=== PATIENT | female | born 1965 | race American Indian/Alaskan Native ===

== ENCOUNTER 2017-10-21 08:05 | Day surgery (SDC) | payer MEDICAID ==
[~2017-10-21 08:05] MED LIST: WATER FOR IRRIG STERILE IR ONE
[2017-10-21] MEDS ORDERED: NACL 0.9% 1000 ML 1,000 ML IV SCH (09:00)
[2017-10-21] MEDS ORDERED: HURRICAINE ONE 20% TOPICAL SPRAY MM ×2 (10:24→16:13)
[2017-10-21] MEDS ORDERED: DIPRIVAN 10 MG/ML IV ONE ×2 (10:27)
--- NOTE | 2017-10-21 10:31 | Anesthesia Consultation ---
Anesthesia Consult and Med Hx Date of service: 10/21/17 - Airway Anesthetic Teeth Evaluation: Good ROM Head & Neck: Adequate Mental/Hyoid Distance: Adequate Mallampati Class: Class III Intubation Access Assessment: Possibly Difficult - Pulmonary Exam CTA: Yes - Cardiac Exam Cardiac Exam: RRR - Pre-Operative Health Status ASA Pre-Surgery Classification: ASA3 Proposed Anesthetic Plan: MAC - Pulmonary Hx Sleep Apnea: Yes - Cardiovascular System Hx Hypertension: Yes - Endocrine Hx Non-Insulin Dependent Diabetes: Yes - Hematic Hx Sickle Cell Disease: Yes (TRAIT) - Other Systems Hx Cancer: Yes (left breas, s/p masectomy ) Hx Obesity: Yes
--- NOTE | 2017-10-21 10:32 | Anesthesia Day of Surgery ---
Anesthesia Day of Surgery - Day of Surgery Patient Examined: Yes Patient H&P Reviewed: Yes Patient is NPO: Yes
--- NOTE | 2017-10-21 10:42 | Operative Report ---
Operative Report Operative Report: OPERATIVE REPORT - EGD DATE 10/21/17 SURGERY: Upper endoscopy. SURGEON: Dr. Garcia DRESSMAKER OR TAILOR: Beto Beckett DO PRE OP DX: dyspepsia POST OP DX: gastritis , small hiatal hernia TYPE OF ANESTHESIA: MAC. ESTIMATED BLOOD LOSS: None. COMPLICATIONS: None. SPECIMENS REMOVED: antral biopsy, body of stomach biopsy FINDINGS: 1. Small hiatal hernia. 2. gastritis INDICATIONS:INDICATION FOR PROCEDURE: Patient is a 52-year-old female with a long history of morbid obesity. She is planned to have a weight loss procedure and is here for preoperative planning EGD. PROCEDURE DETAILS: After consent was reviewed, patient was taken back to the operating room where patient was placed in the left lateral decubitus position and a bite block was placed in the mouth. After a time-out was called, MAC anesthesia was initiated. I then passed the endoscope into her oropharynx, into her esophagus, visualized the entire esophagus, which was all within normal limits. I then visualized the stomach and the first portion of the duodenum. The stomach was noted to have gastritis. An antral biopsy and body of stomach biopsy were performed. Next the scope was I then retroflexed in the stomach and visualized the hiatus and I could see a small hiatal hernia. I then desufflated the stomach and removed the endoscope. Patient tolerated procedure well and was transferred to recovery room in good and stable condition.
--- NOTE | 2017-10-21 10:57 | Discharge Summary ---
Providers - Providers Attending physician: JUAN MIGUEL GARCIA Primary care physician: DEIDRA BULLOCK Hospitalization Procedures: egd with biopsy Hospital course: 52 y.o. F presented for an EGD for upcoming surgery. She tolerated the procedure well. She was noted to have gastritis and was prescribed omeprazole. 20mg daily Disposition: - TO HOME OR SELFCARE Core Measure Documentation - Palliative Care Palliative Care/ Comfort Measures: Not Applicable - Core Measures Any of the following diagnoses?: none Exam - Physical Exam Narrative exam: no change from prior - Constitutional Vitals: Temp Pulse Resp BP Pulse Ox 98.3 F 90 13 122/82 94 10/21/17 08:57 10/21/17 08:57 10/21/17 08:57 10/21/17 08:57 10/21/17 08:57 Plan Additional Instructions: follow up with Dr. Garcia. A prescription for omeprazole will be called into your pharmacy. Follow up with: DEIDRA BULLOCK MD [Primary Care Provider] - 7 Days
[2017-10-21 11:27] VITALS: BP 125/73
[2017-10-21] MEDS ORDERED: WATER FOR IRRIG STERILE IR ONE (13:11)
--- NOTE | 2017-10-21 14:13 | Post Anesthesia Evaluation ---
- Post Anesthesia Evaluation Patient Participated: Yes Airway Patent: Yes Stable Respiratory Function: Yes Nausea/Vomiting: No Temp > 96.8F: Yes Pain Manageable: Yes Adequeate Hydration: Yes Anesthesia Complications: No
== END 2017-10-21 08:06 | disposition home or self-care (01) ==
LOC: GIO 08:05
PROVIDERS: ATTEND Specialist
DX: K29.50 Unspecified chronic gastritis without bleeding (principal); B96.81 Helicobacter pylori [H. pylori] as the cause of diseases classified elsewhere; K44.9 Diaphragmatic hernia without obstruction or gangrene; K21.9 Gastro-esophageal reflux disease without esophagitis; G47.33 Obstructive sleep apnea (adult) (pediatric); I10 Essential (primary) hypertension; E78.00 Pure hypercholesterolemia, unspecified; E11.9 Type 2 diabetes mellitus without complications; F41.9 Anxiety disorder, unspecified; F32.9 Major depressive disorder, single episode, unspecified; E66.01 Morbid (severe) obesity due to excess calories; Z68.42 Body mass index [BMI] 45.0-49.9, adult; Z99.89 Dependence on other enabling machines and devices; Z85.3 Personal history of malignant neoplasm of breast; Z90.710 Acquired absence of both cervix and uterus; Z98.51 Tubal ligation status; Z90.13 Acquired absence of bilateral breasts and nipples; Z79.82 Long term (current) use of aspirin; Z79.84 Long term (current) use of oral hypoglycemic drugs; Z79.899 Other long term (current) drug therapy; Z88.1 Allergy status to other antibiotic agents; Z88.8 Allergy status to other drugs, medicaments and biological substances
CPT/HCPCS: 43239; 82962; 88305; 88342; J2704

== ENCOUNTER 2017-11-04 07:04 | Inpatient (IN) | payer MEDICAID ==
[~2017-11-04 07:04] MED LIST changes: +ANCEF/STERILE WATER 2 GM/20 ML 2 GM/20 ML SYRINGE IV NR; +APRESOLINE IV PRN; +FLAGYL 500 MG/100 ML 500 MG/100 ML BAG IV NR; +MORPHINE IV PRN; +MYLICON PO PRN; +NORMOSOL-R PH 7.4 1,000 ML IV SCH; +REGLAN IV PRN; -WATER FOR IRRIG STERILE IR ONE; +ZOFRAN IV PRN
[2017-11-04] MEDS ORDERED: TRANSDERM-SCOP TD SCH (08:00)
[2017-11-04] MEDS ORDERED: PEPCID IV SCH (08:13)
[2017-11-04] MEDS ORDERED: TRANSDERM-SCOP TD NR (08:14)
[2017-11-04] MEDS ORDERED: VERSED IV ONE (09:23)
[2017-11-04] MEDS ORDERED: LOVENOX SUB-Q NR (09:30)
[2017-11-04] MEDS: NACL 0.9% 1000 ML 1,000 ML IV SCH ×2 (09:35→16:58)
--- NOTE | 2017-11-04 09:38 | Anesthesia Consultation ---
Anesthesia Consult and Med Hx - Airway Anesthetic Teeth Evaluation: Good ROM Head & Neck: Adequate Mental/Hyoid Distance: Adequate Mallampati Class: Class II Intubation Access Assessment: Good - Pulmonary Exam CTA: Yes - Cardiac Exam Cardiac Exam: RRR - Pre-Operative Health Status ASA Pre-Surgery Classification: ASA3 Proposed Anesthetic Plan: General - Pulmonary Hx Sleep Apnea: Yes - Cardiovascular System Hx Hypertension: Yes (2010) - Central Nervous System Hx Psychiatric Problems: Yes - Endocrine Hx Non-Insulin Dependent Diabetes: Yes - Hematic Hx Sickle Cell Disease: Yes (TRAIT) - Other Systems Hx Cancer: Yes Hx Obesity: Yes
--- NOTE | 2017-11-04 09:40 | Anesthesia Day of Surgery ---
Anesthesia Day of Surgery - Day of Surgery Patient Examined: Yes Patient H&P Reviewed: Yes Patient is NPO: Yes
[2017-11-04] MEDS ORDERED: ZOFRAN IV PRN (09:41)
[2017-11-04] MEDS ORDERED: DILAUDID IV PRN (09:41)
[2017-11-04] MEDS ORDERED: MARCAINE-EPI 0.5%-1:200,000 INFILTRATI ONE ×2 (10:05→10:19)
[2017-11-04] MEDS ORDERED: XYLOCAINE 1% 20 mL ONE (10:05)
[2017-11-04] MEDS ORDERED: XYLOCAINE MPF 2% ONE (10:06)
[2017-11-04] MEDS ORDERED: ZEMURON IV ONE (10:06)
[2017-11-04] MEDS ORDERED: QUELICIN ONE (10:07)
[2017-11-04] MEDS ORDERED: DIPRIVAN 10 MG/ML IV ONE (10:07)
[2017-11-04] MEDS ORDERED: XYLOCAINE 1% 20 mL INFILTRATI ONE (10:19)
[2017-11-04] MEDS ORDERED: NACL 0.9% IR ONE ×2 (10:19→11:25)
[2017-11-04] MEDS ORDERED: SUBLIMAZE ONE (10:32)
[2017-11-04] MEDS ORDERED: WATER FOR IRRIG STERILE IR ONE (12:23)
[2017-11-04] MEDS ORDERED: NEOSTIGMINE ONE (14:09)
[2017-11-04] MEDS ORDERED: ROBINUL ONE ×2 (14:09→14:18)
[2017-11-04] MEDS ORDERED: DILAUDID ONE (14:09)
[2017-11-04] MEDS ORDERED: NEO SYNEPHRINE/NS Syringe(OR USE) IV ONE (14:10)
[2017-11-04] MEDS ORDERED: HumuLIN R IV ONE (15:00)
--- NOTE | 2017-11-04 16:33 | Operative Report ---
Operative Report Operative Report: Operative Report DATE OF PROCEDURE: 11/04/17 SURGEON: Dr. Garcia FEED PREPARATION OPERATOR: Adilson Talbert DO PREOPERATIVE DIAGNOSIS: Morbid obesity. POSTOPERATIVE DIAGNOSES: Morbid obesity PROCEDURES PERFORMED: 1. Laparoscopic gastric bypass. 2. Repair of hiatal hernia 3 EGD. 4 Liver biopsy 5. extensive lysis of adhesions ANESTHESIA: General endotracheal tube intubation. SPECIMENS: None. ESTIMATED BLOOD LOSS: Less than 10 mL. FINDINGS: Liver nodule 2. Adhesions 3. hiatal hernia COMPLICATIONS: None. INDICATION: Ms. Lee is a 52-year-old female with history of morbid obesity. She signed informed consent and expressed understanding of risks and benefits for a laparoscopic gastric bypass. DESCRIPTION OF PROCEDURE: Patient was brought to the OR suite, laid in supine position. Bilateral lower extremity SCDs were placed. General anesthesia was induced via successful endotracheal tube intubation. Patient's abdomen was prepped and draped in sterile fashion. Veress needle was inserted with ease into left upper quadrant. Insufflation to 12-15 was completed. Next using Optiview technique, a 12-mm trocar was placed into the abdominal cavity under direct vision. There was noted to be no gross injury to any intraabdominal structures. The veress needle was removed. 5 working trocars were placed under direct visualization, 15 mm in the right mid abdomen mid clavicular line and three 5-mm trocars in the right upper quadrant, epigastric, left upper quadrant and left mid abdomen. Extensive lysis of adhesions were performed as the omentum was adhered to the peritoneum. At this time, the ligament of Treitz identified and followed down approximately 30 cm and the jejunum was transected. The distal segment of jejunum was then traced for approximately 75 cm and a stable [id number] jejunojejunostomy was performed. The common enterotomy was closed with 2 firings of the endoscopic stapler. The mesenteric defect was closed with running Surgidac suture. This anastomosis was found to be patent without kink, obstruction or bleeding. At this time, the patient was placed in steep reverse Trendelenburg position. A liver retractor was placed through the epigastric port to elevate the left lateral lobe of the liver. The right and left crura were skeletonized accentuating a small hiatal hernia. An anterior cruraplasty was performed with a figure-of-8 stitch using surgidac suture to reapproximate the crura. Next a small gastric pouch was formed useing blunt dissection and a blue staple load x 2. The Elizabeth limb was then brought in an antegastric antecolic fashion and secured with 2 stay sutures to the gastric pouch. After this, the enterotomies were made with the hook cautery, and a [id number] stapled gastrojejunostomy was performed with a mechanical stapler. After this, a 2-layer running closure using Polysorb suture were done, the first being mucosal approximation prior to completion of the first layer. Next an EGD scope beyond the anastomosis to act as a stent. The first layer was completed, the second was then performed. After this, the EGD was retracted slightly. A bowel clamp was placed in a proximal Elizabeth limb. The anastomosis was submerged under saline. Via intraluminal EGD insufflation, there was noted be no bubbles in the saline indicating an airtight anastomosis. There was noted to be no obstruction or bleeding intraluminally in the pouch or the anastomosis. At this time, the scope was removed. The saline was aspirated. There was a hard white nodule on the right lobe of the liver. This nodule was removed with sharp dissection and hemostasis was obtained by hook cautery and pressure. Surgicele was placed over the wound on the liver. A small laceration of the liver was noted and the hook cautery obtained hemostasis along with the use fo the surgicele. The 15mm trocar was removed from the umbilius. The defect was closed using a suture passer with 1-pds. Next the remaining trocars were removed under direct visualization and the abdomen was then desufflated. The skin incisions were closed with 4-0 Monocryl followed by sterstrips, gauze and tegaderms. Patient was awoken and taken to recovery in stable condition. All counts were correct.
[2017-11-04] MEDS: HumaLOG SUB-Q SCH (18:53)
[2017-11-04] MEDS: DILAUDID IV PRN (22:30)
[2017-11-05] MEDS: HumaLOG SUB-Q SCH ×5 (00:05→23:29)
[2017-11-05] MEDS: NEURONTIN PO SCH ×4 (00:05→21:26)
[2017-11-05] MEDS: DILAUDID IV PRN (06:01)
[2017-11-05 06:06] LABS: Basophils % (Auto) 0.3 % (0.0-1.8); Eosinophils % (Auto) 0.1 % (0.0-4.3); Hematocrit 32.9 % (30.3-42.9); Hemoglobin 11.1 gm/dl (10.1-14.3); Lymphocytes # (Auto) 1.1 K/mm3 (1.2-5.4); Lymphocytes % (Auto) 12.9 % (13.4-35.0); Mean Corpuscular HGB Conc 34 % (30-34); Mean Corpuscular Hemoglobin 26 pg (28-32); Mean Corpuscular Volume 78 fl (79-97); Monocytes # (Auto) 0.9 K/mm3 (0.0-0.8); Monocytes % (Auto) 11.2 % (0.0-7.3); Platelet Count 220 K/mm3 (140-440); Red Blood Count 4.23 M/mm3 (3.65-5.03); Red Cell Distribution Width 14.3 % (13.2-15.2)
[2017-11-05 06:26] LABS: BUN/Creatinine Ratio 11; Blood Urea Nitrogen 8 mg/dL (7-17); Calcium 7.9 mg/dL (8.4-10.2); Hemolysis Index 0
[2017-11-05] MEDS: NACL 0.9% 1000 ML 1,000 ML IV SCH ×2 (07:22→19:39)
[2017-11-05] MEDS: NORVASC PO SCH (12:00)
[2017-11-05] MEDS: LOVENOX SUB-Q SCH (12:00)
[2017-11-05] MEDS: NORCO PO PRN ×2 (12:58→19:48)
--- NOTE | 2017-11-05 19:31 | Progress Note ---
Assessment and Plan 52 y.o. F s/p laparoscopic gastric bypass, hiatal hernia repair, extensive lysis of adhesions and liver biopsy pod 1 Pt vomited this am. She tolerated liquids this afternoon but with nausea. She continues to have epigastric pain. Will monitor overnight and reassess in am. continue pain and nausea control encourage ambulation Continue home meds for co-morbidities. GI and DVT proph Subjective Narrative: One episode of vomiting this am. Able to drink liquids this afternoon with feeling of nausea but no vomiting. +ambulation. Denies fever or chills. epigastric pain. Soreness in abd. when drinking . Objective Vital Signs - 12hr 11/05/17 11/05/17 11/05/17 08:00 08:48 10:00 Temperature 98.5 F Pulse Rate 77 82 Respiratory 18 Rate Blood Pressure Blood Pressure 151/80 [Left] O2 Sat by Pulse 98 94 Oximetry 11/05/17 11/05/17 11/05/17 12:00 12:15 12:16 Temperature 99.1 F Pulse Rate 79 71 Respiratory 18 Rate Blood Pressure Blood Pressure 153/80 [Left] O2 Sat by Pulse 98 98 Oximetry 11/05/17 11/05/17 15:42 15:43 Temperature 98.6 F Pulse Rate 87 87 Respiratory 20 Rate Blood Pressure 132/78 Blood Pressure [Left] O2 Sat by Pulse 96 97 Oximetry - General physical appearance well developed, well nourished, no distress - Respiratory normal expansion, normal respiratory effort - Abdomen soft, other (distended epigastric area. no rebound no guarding. incision dressins minimal blood stained. ) - Integumentary no rash - Neurologic normal coordination, normal sensation - Musculoskeletal normal gait, normal posture - Psychiatric oriented to time, oriented to person, oriented to place, speech is normal - Labs 11/05/17 05:15 11/05/17 05:15 Diabetes panel 11/05/17 Range/Units 05:15 Sodium 143 (137-145) mmol/L Potassium 3.3 L (3.6-5.0) mmol/L Chloride 101.9 (98-107) mmol/L Carbon Dioxide 27 (22-30) mmol/L BUN 8 (7-17) mg/dL Creatinine 0.7 (0.7-1.2) mg/dL Glucose 160 H (65-100) mg/dL Calcium 7.9 L (8.4-10.2) mg/dL Calcium panel 11/05/17 Range/Units 05:15 Calcium 7.9 L (8.4-10.2) mg/dL Pituitary panel 11/05/17 Range/Units 05:15 Sodium 143 (137-145) mmol/L Potassium 3.3 L (3.6-5.0) mmol/L Chloride 101.9 (98-107) mmol/L Carbon Dioxide 27 (22-30) mmol/L BUN 8 (7-17) mg/dL Creatinine 0.7 (0.7-1.2) mg/dL Glucose 160 H (65-100) mg/dL Calcium 7.9 L (8.4-10.2) mg/dL Adrenal panel 11/05/17 Range/Units 05:15 Sodium 143 (137-145) mmol/L Potassium 3.3 L (3.6-5.0) mmol/L Chloride 101.9 (98-107) mmol/L Carbon Dioxide 27 (22-30) mmol/L BUN 8 (7-17) mg/dL Creatinine 0.7 (0.7-1.2) mg/dL Glucose 160 H (65-100) mg/dL Calcium 7.9 L (8.4-10.2) mg/dL
[2017-11-05] MEDS ORDERED: KCL 10 MEQ in NACL 0.9% 100 ML IV ONE (20:26)
[2017-11-06] MEDS: NORCO PO PRN (05:12)
[2017-11-06] MEDS: NACL 0.9% 1000 ML 1,000 ML IV SCH (05:13)
[2017-11-06 05:17] LABS: Basophils % (Auto) 0.4 % (0.0-1.8); Eosinophils # (Auto) 0.1 K/mm3 (0.0-0.4); Eosinophils % (Auto) 1.5 % (0.0-4.3); Hematocrit 31.9 % (30.3-42.9); Hemoglobin 10.3 gm/dl (10.1-14.3); Lymphocytes # (Auto) 1.4 K/mm3 (1.2-5.4); Lymphocytes % (Auto) 19.6 % (13.4-35.0); Mean Corpuscular HGB Conc 32 % (30-34); Mean Corpuscular Volume 80 fl (79-97); Monocytes # (Auto) 0.7 K/mm3 (0.0-0.8); Monocytes % (Auto) 9.8 % (0.0-7.3); Platelet Count 186 K/mm3 (140-440); Red Cell Distribution Width 14.4 % (13.2-15.2)
[2017-11-06] MEDS: NEURONTIN PO SCH ×2 (05:28→14:48)
[2017-11-06 05:29] LABS: Mean Corpuscular Hemoglobin 26 pg (28-32)
[2017-11-06 05:31] LABS: BUN/Creatinine Ratio 12; Blood Urea Nitrogen 6 mg/dL (7-17); Calcium 7.5 mg/dL (8.4-10.2); Hemolysis Index 5
[2017-11-06] MEDS: HumaLOG SUB-Q SCH ×2 (06:50→14:57)
[2017-11-06] MEDS: LOVENOX SUB-Q SCH (10:00)
[2017-11-06] MEDS: NORVASC PO SCH (10:00)
--- NOTE | 2017-11-06 10:04 | Progress Note ---
Assessment and Plan 52 y.o. F s/p laparoscopic gastric bypass, hiatal hernia repair, extensive lysis of adhesions and liver biopsy pod 2 Denies N/V. She continues to have epigastric pain. continue pain and nausea control encourage ambulation Continue home meds for co-morbidities. GI and DVT proph Objective Vital Signs - 12hr 11/05/17 11/06/17 11/06/17 23:46 05:03 05:04 Temperature 99.7 F H 99.6 F Pulse Rate 81 107 H 105 H Respiratory 20 20 Rate Blood Pressure 119/71 149/98 Blood Pressure [Left] O2 Sat by Pulse 96 92 93 Oximetry 11/06/17 08:00 Temperature 98.2 F Pulse Rate 72 Respiratory 18 Rate Blood Pressure Blood Pressure 116/68 [Left] O2 Sat by Pulse 97 Oximetry - General physical appearance well developed, well nourished, no distress - Respiratory normal expansion, normal respiratory effort - Abdomen other (soft, nondistended, no rebound, no guarding. Incision dressing clean and dry ) - Labs 11/06/17 04:37 11/06/17 04:37 Diabetes panel 11/06/17 Range/Units 04:37 Sodium 143 (137-145) mmol/L Potassium 3.0 L (3.6-5.0) mmol/L Chloride 102.2 (98-107) mmol/L Carbon Dioxide 27 (22-30) mmol/L BUN 6 L (7-17) mg/dL Creatinine 0.5 L (0.7-1.2) mg/dL Glucose 144 H (65-100) mg/dL Calcium 7.5 L (8.4-10.2) mg/dL Calcium panel 11/06/17 Range/Units 04:37 Calcium 7.5 L (8.4-10.2) mg/dL Pituitary panel 11/06/17 Range/Units 04:37 Sodium 143 (137-145) mmol/L Potassium 3.0 L (3.6-5.0) mmol/L Chloride 102.2 (98-107) mmol/L Carbon Dioxide 27 (22-30) mmol/L BUN 6 L (7-17) mg/dL Creatinine 0.5 L (0.7-1.2) mg/dL Glucose 144 H (65-100) mg/dL Calcium 7.5 L (8.4-10.2) mg/dL Adrenal panel 11/06/17 Range/Units 04:37 Sodium 143 (137-145) mmol/L Potassium 3.0 L (3.6-5.0) mmol/L Chloride 102.2 (98-107) mmol/L Carbon Dioxide 27 (22-30) mmol/L BUN 6 L (7-17) mg/dL Creatinine 0.5 L (0.7-1.2) mg/dL Glucose 144 H (65-100) mg/dL Calcium 7.5 L (8.4-10.2) mg/dL
[2017-11-06] MEDS ORDERED: KCL 10MEQ/100ML 10 MEQ/100 ML BAG IV SCH (11:00)
[2017-11-06] MEDS ORDERED: KCL 20 MEQ in NACL 0.9% 250ML 250 ML IV ONE (12:00)
[2017-11-06] MEDS ORDERED: POTASSIUM CHLORIDE PO ONE (12:30)
[2017-11-06 14:56] VITALS: BP 119/71
--- NOTE | 2017-11-06 17:14 | Discharge Summary ---
Providers - Providers Date of Admission: 11/04/17 07:04 Attending physician: JUAN MIGUEL VELASQUEZ Primary care physician: SHAW STANTON Hospitalization Reason for admission: surgery Condition: Stable Procedures: lap gastric bypass, hiatal hernia repair and liver biopsy Hospital course: 52 y.o. F admitted to the hospital for surgery. She had a laparoscopic gastric bypass, hiatal hernia repair and a liver biopsy. She tolerated the procedure well. She stayed on POD 1 due to nausea. On POD 2 she was ambulating more and her nausea was more controlled. She denies any vomiting on day of discharge. Her pain was well controlled and she was tolerating clears prior to discharge in pod 2 Disposition: [id number] TO HOME OR SELFCARE Core Measure Documentation - Palliative Care Palliative Care/ Comfort Measures: Not Applicable - Core Measures Any of the following diagnoses?: none Exam - Physical Exam Narrative exam: no change from earlier - Constitutional Vitals: Temp Pulse Resp BP Pulse Ox 98.1 F 71 18 119/71 98 11/06/17 12:00 11/06/17 12:00 11/06/17 12:00 11/06/17 12:00 11/06/17 12:00 Plan Additional Instructions: dc instruction written out on order sheet Follow up with: SHAW STANTON MD [Primary Care Provider] - 7 Days
== END 2017-11-06 16:15 | disposition home or self-care (01) | DRG 327 ==
LOC: 3A 07:04 → 3B-SURG 15:01
PROVIDERS: ADMIT Specialist; ATTEND Specialist
PROC: 0D164ZA Bypass Stomach to Jejunum, Percutaneous Endoscopic Approach (ICD-10-PCS; principal; 2017-11-04)
PROC: 0DNU3ZZ Release Omentum, Percutaneous Approach (ICD-10-PCS; 2017-11-04)
PROC: 0BQT4ZZ Repair Diaphragm, Percutaneous Endoscopic Approach (ICD-10-PCS; 2017-11-04)
PROC: 0FB14ZX Excision of Right Lobe Liver, Percutaneous Endoscopic Approach, Diagnostic (ICD-10-PCS; 2017-11-04)
DX: K44.9 Diaphragmatic hernia without obstruction or gangrene (principal); Z68.42 Body mass index [BMI] 45.0-49.9, adult; E66.01 Morbid (severe) obesity due to excess calories; G47.30 Sleep apnea, unspecified; I10 Essential (primary) hypertension; E11.9 Type 2 diabetes mellitus without complications; F32.9 Major depressive disorder, single episode, unspecified; K66.0 Peritoneal adhesions (postprocedural) (postinfection); Z85.3 Personal history of malignant neoplasm of breast; Z79.899 Other long term (current) drug therapy; Z79.84 Long term (current) use of oral hypoglycemic drugs
CPT/HCPCS: 36415; 80048; 82962; 85025; 88307; 94760; A4217; J0330; J0690; J1170; J1650; J1815; J2250; J2370; J2405; J2704; J2710; J3010; J3480; J7030; J7050